=== PATIENT | female | born 1980 | race Two or more races ===

== ENCOUNTER 2019-08-22 13:15 | Inpatient (IN) | payer OTHER ==
[~2019-08-22] VITALS: Ht 167.6 cm; Wt 54.9 kg
[2019-08-22 14:10] LABS: BASOPHILS % (AUTO) 0.5 % (0.0-2.0); EOSINOPHILS % (AUTO) 1.1 % (1.0-6.0); HEMATOCRIT 39.1 % (36-46); HEMOGLOBIN 13.3 g/dL (12.0-16.0); LYMPHOCYTES # (AUTO) 1.7 K/uL (1.0-4.8); LYMPHOCYTES % (AUTO) 20.3 % (22.0-44.0); MEAN CORPUSCULAR HEMOGLOBIN 34.7 pg (26.0-34.0); MEAN CORPUSCULAR HGB CONC 34.1 G/dL (31.0-37.0); MEAN CORPUSCULAR VOLUME 102 fL (80-100); MONOCYTES # (AUTO) 0.5 K/uL (0.1-1.0); MONOCYTES % (AUTO) 5.5 % (2.0-9.0); NEUTROPHILS # (AUTO) 6.1 K/uL (1.8-7.7); NEUTROPHILS % (AUTO) 72.6 % (40.0-70.0); PLATELET COUNT (AUTO) 228 K/uL (150-450); RED BLOOD CELL COUNT(AUTO) 3.84 MIL/uL (4.00-5.20); RED CELL DISTRIBUTION WIDTH 13.1 % (11.5-14.5)
[2019-08-22 14:20] LABS: ANION GAP 12 mmol/L (8-16); CALCIUM, TOTAL 7.8 mg/dL (8.8-10.5); CARBON DIOXIDE 25 mmol/L (22-29); CHLORIDE 111 mmol/L (98-107); CREATININE 0.56 mg/dL (0.60-1.30); GLOMERULAR FILTR. RATE CALC > 60 mL/min (>60); GLUCOSE,RANDOM 87 mg/dL (70-110); POTASSIUM 3.5 mmol/L (3.5-5.1); SODIUM SERUM 148 mmol/L (136-145); UREA NITROGEN, BLOOD 15 mg/dL (7-18)
[2019-08-22 14:22] LABS: ALANINE AMINOTRANSFERASE 37 U/L (12-78); ALBUMIN 3.5 g/dL (3.4-5.0); ALKALINE PHOSPHATASE 37 U/L (46-116); ASPARTATE AMINOTRANSFERASE 30 U/L (15-37); BILIRUBIN,TOTAL 0.4 mg/dL (0.1-1.0); TOTAL PROTEIN, SERUM 6.6 g/dL (6.4-8.2)
[2019-08-22 15:37] LABS: HCG,QUANTITATIVE < 1 mIU/mL (0-6)
[2019-08-22 16:57] LABS: AMPHET/METH SCREEN,URINE NEGATIVE (NEGATIVE); BARBITURATE SCREEN, URINE NEGATIVE (NEGATIVE); BENZODIAZEPINES SCREEN,URINE NEGATIVE (NEGATIVE); CANNABINOID SCREEN,URINE NEGATIVE (NEGATIVE); COCAINE SCREEN,URINE NEGATIVE (NEGATIVE); METHADONE SCREEN, URINE NEGATIVE (NEGATIVE); OPIATE SCREEN,URINE NEGATIVE (NEGATIVE)
[2019-08-22 16:58] LABS: PHENCYCLIDINE SCREEN,URINE NEGATIVE (NEGATIVE)
[2019-08-22] MEDS ORDERED: ZOLPIDEM TARTRATE 10 MG TABLET PO PRN (21:30)
[2019-08-22] MEDS ORDERED: LORazepam 2 MG TABLET PO PRN ×2 (21:30)
[2019-08-22] MEDS ORDERED: OLANZapine 5 MG RAPDIS TABLET PO PRN (21:30)
[2019-08-22 23:45] VITALS: BP 143/71
[2019-08-23] VITALS (12 sets, daily range): BP systolic 98–143; BP diastolic 59–87
[2019-08-23] MEDS ORDERED: INFLUENZA VIRUS VACCINE QVS 2019-20 (3YR+)/PF 60 MCG/0.5 ML SYRINGE IM ONE (03:00)
[2019-08-23 06:45] LABS: CHOL/HDL RATIO 2.1 (3.9-5.7)
[2019-08-23] MEDS ORDERED: LORazepam 2 MG TABLET PO PRN (07:00)
[2019-08-23] MEDS: LORazepam 2 MG TABLET PO SCH ×4 (08:26→21:20)
[2019-08-23] MEDS ORDERED: ALBUTEROL SULFATE HFA 90 MCG/PUFF 8 GM INHALER IH PRN (09:30)
[2019-08-23] MEDS ORDERED: PETROLATUM,WHITE 28 GM JELLY TP PRN (09:30)
[2019-08-23] MEDS ORDERED: ACETAMINOPHEN 325 MG TABLET PO PRN (09:30)
[2019-08-23] MEDS ORDERED: MAG HYDROX/AL HYDROX/SIMETH ES 30 ML SUSPENSION UDCUP PO PRN (09:30)
[2019-08-23] MEDS ORDERED: IBUPROFEN 400 MG TABLET PO PRN (09:30)
[2019-08-23] MEDS ORDERED: MAGNESIUM HYDROXIDE SUSPENSION 30 ML UDCUP PO PRN (09:30)
[2019-08-23] MEDS ORDERED: LOPERAMIDE HCL 2 MG CAPSULE PO PRN ×2 (09:30→10:15)
[2019-08-23] MEDS ORDERED: NICOTINE 14 MG/24 HOUR PATCH TD PRN (09:30)
[2019-08-23] MEDS ORDERED: GuaiFENesin/D-METHORPHAN [SUGAR-FREE] 200-20MG/10 ML SYRUP UDCUP PO PRN ×2 (09:30→10:15)
[2019-08-23] MEDS ORDERED: CloNIDine HCL 0.1 MG TABLET PO PRN (09:30)
[2019-08-23] MEDS ORDERED: DOCUSATE SODIUM 100 MG CAPSULE PO PRN (09:30)
[2019-08-23] MEDS ORDERED: ONDANSETRON HCL 4 MG TABLET PO PRN (09:30)
[2019-08-23] MEDS: NICOTINE 14 MG/24 HOUR PATCH TD SCH (10:02)
[2019-08-23] MEDS ORDERED: DIAZEPAM 10 MG TABLET PO PRN (10:15)
[2019-08-23] MEDS ORDERED: HydrOXYzine PAMOATE 50 MG CAPSULE PO PRN (10:15)
[2019-08-23] MEDS ORDERED: TUBERCULIN, PURIFIED PROTEIN DERIVATIVE 5 TU/0.1 ML SYRINGE ID ONE (10:15)
[2019-08-23] MEDS ORDERED: CYANOCOBALAMIN 1,000 MCG/ML VIAL IM ONE (10:15)
[2019-08-23] MEDS: THIAMINE HCL 100 MG TABLET PO SCH (16:31)
[2019-08-23] MEDS ORDERED: MIRTAZAPINE 15 MG TABLET PO SCH (21:00)
[2019-08-24 03:45] VITALS: BP 122/79
[2019-08-24 06:49] LABS: CHOL/HDL RATIO 2.3 (3.9-5.7); CHOLESTEROL 188 mg/dL (131-200); FREE T4 (FREE THYROXINE) 0.88 ng/dL (0.76-1.46); HCG,QUANTITATIVE < 1 mIU/mL (0-6); HDL CHOLESTEROL 83 mg/dL (40-60); LDL CHOL (CALC.) 96 mg/dL (0-130); THYROID STIMULATING HORMONE 1.24 uIU/mL (0.36-3.74); TRIGLYCERIDES 47 mg/dL (15-150)
[2019-08-24] MEDS ORDERED: DIAZEPAM 10 MG TABLET PO PRN (07:00)
[2019-08-24 07:22] LABS: HEMOGLOBIN A1C 5.4 % (4.5-6.2)
[2019-08-24 07:45] VITALS: BP 116/91
[2019-08-24] MEDS: THIAMINE HCL 100 MG TABLET PO SCH ×2 (09:29→16:38)
[2019-08-24] MEDS: NALTREXONE HCL 50 MG TABLET PO SCH (09:29)
[2019-08-24] MEDS: DIAZEPAM 10 MG TABLET PO SCH ×4 (09:30→20:38)
[2019-08-24] MEDS: MULTIVITAMINS WITH MINERALS, THERAPEUTIC TABLET PO SCH (09:30)
[2019-08-24] MEDS: FOLIC ACID 1 MG TABLET PO SCH (09:30)
[2019-08-24] MEDS: LORazepam 2 MG TABLET PO SCH (09:30)
[2019-08-24] MEDS: NICOTINE 14 MG/24 HOUR PATCH TD SCH (09:31)
[2019-08-24] MEDS ORDERED: NALT50TA PO (13:01)
[2019-08-24] MEDS ORDERED: MIRT15 PO (13:22)
[2019-08-24 17:14] VITALS: BP 110/67
[2019-08-24] MEDS ORDERED: MIRTAZAPINE 15 MG TABLET PO SCH ×2 (21:00)
[2019-08-25 06:05] VITALS: BP 126/65
[2019-08-25] MEDS ORDERED: LORazepam 1 MG TABLET PO PRN (07:00)
[2019-08-25 08:00] VITALS: BP 113/82
[2019-08-25] MEDS ORDERED: FLUoxetine HCL 20 MG CAPSULE PO SCH (09:00)
[2019-08-25] MEDS ORDERED: LORazepam 1 MG TABLET PO SCH (09:00)
[2019-08-25 09:03] VITALS: BP 113/82
[2019-08-25] MEDS: NALTREXONE HCL 50 MG TABLET PO SCH (09:46)
[2019-08-25] MEDS: THIAMINE HCL 100 MG TABLET PO SCH (09:47)
[2019-08-25] MEDS: FOLIC ACID 1 MG TABLET PO SCH (09:47)
[2019-08-25] MEDS: MULTIVITAMINS WITH MINERALS, THERAPEUTIC TABLET PO SCH (09:47)
[2019-08-25] MEDS: NICOTINE 14 MG/24 HOUR PATCH TD SCH (09:51)
[2019-08-25] MEDS: DIAZEPAM 10 MG TABLET PO SCH (09:55)
[2019-08-25] MEDS ORDERED: FLUO-191 PO (12:51)
[2019-08-26] MEDS ORDERED: DIAZEPAM 5 MG TABLET PO PRN (07:00)
[2019-08-26] MEDS ORDERED: DIAZEPAM 5 MG TABLET PO SCH (09:00)
[2019-08-27] MEDS ORDERED: DIAZEPAM 5 MG TABLET PO PRN (07:00)
== END 2019-08-25 13:25 | disposition home or self-care (01) | DRG 885 ==
LOC: EMS 13:17 → EDSEX 13:17 → 3EI 21:36
PROVIDERS: ADMIT Psychiatry & Neurology Psychiatry; ATTEND Psychiatry & Neurology Psychiatry
DX: F33.9 Major depressive disorder, recurrent, unspecified (principal); E87.0 Hyperosmolality and hypernatremia; R45.851 Suicidal ideations; F17.210 Nicotine dependence, cigarettes, uncomplicated; E78.5 Hyperlipidemia, unspecified; F10.129 Alcohol abuse with intoxication, unspecified; Z91.19 Patient's noncompliance with other medical treatment and regimen; Z82.49 Family history of ischemic heart disease and other diseases of the circulatory system
CPT/HCPCS: 83036; 84439; 84443; 86592; 90686; 93005; 96372; 99406; G0480; J3420